=== PATIENT | male | born 1985 | race Two or more races ===

== ENCOUNTER 2019-06-09 03:33 | Emergency (ER) | payer MEDICAID, OTHER ==
[~2019-06-09] VITALS: Ht 172.7 cm; Wt 65.8 kg
[2019-06-09 03:53] VITALS: BP 100/70
--- NOTE | 2019-06-09 05:05 | NUR ---
Patient discharged to home in stable condition. Written and verbal after care instructions given. Patient verbalizes understanding of instruction. Pt ambulatory with a steady gait
== END 2019-06-09 05:06 | disposition home or self-care (01) ==
LOC: ER 03:35
DX: R07.81 Pleurodynia (principal); F17.200 Nicotine dependence, unspecified, uncomplicated
CPT/HCPCS: 71100-TC